=== PATIENT | male | born 1970 ===

== ENCOUNTER 2024-10-28 06:21 | Day surgery (SDC) | payer BC, SELFPAY | END 2024-10-28 11:46 | disposition home or self-care (01) | LOC: GI 06:21 | PROVIDERS: ATTENDING PHYSICIAN Surgery | DX: Z12.11 Encounter for screening for malignant neoplasm of colon (principal); D12.0 Benign neoplasm of cecum; D12.8 Benign neoplasm of rectum | CPT/HCPCS: 45385; 88305 ==

== ENCOUNTER → 2025-01-01 12:29 | Outpatient (REF) | payer BC, SELFPAY | LOC: PAVMRI 12:29 | PROVIDERS: ATTENDING PHYSICIAN Surgery; FAMILY PHYSICIAN Family Medicine | DX: K62.89 Other specified diseases of anus and rectum (principal) | CPT/HCPCS: 72197; A9575 ==

== ENCOUNTER → 2025-02-16 10:22 | Outpatient (REF) | payer BC, SELFPAY | LOC: RAD 10:22 | PROVIDERS: ATTENDING PHYSICIAN Surgery; FAMILY PHYSICIAN Family Medicine | DX: C20 Malignant neoplasm of rectum (principal) | CPT/HCPCS: 71260; 74177; Q9967 ==

== ENCOUNTER → 2025-03-10 14:33 | Outpatient (REF) | payer BC, SELFPAY ==
[2025-03-10 15:52] LABS: INR 0.93; PT 12.8 Sec (11.4-14.6)
[2025-03-10 15:53] LABS: APTT 26.1 Sec (23.4-35.0)
[2025-03-10 16:05] LABS: Hematocrit 40.1 % (39.0-52.0); Hemoglobin 13.2 g/dL (13.0-18.0); Mean Corp Hgb Conc. 32.9 g/dL (33.0-37.0); Mean Corpuscular Volume 93.0 fL (80.0-94.0); Nucleated Red Blood Cells % 0 % (-); Platelet Count 254 10^3/uL (130-400); Red Cell Dist. Width 12.9 % (11.5-14.5)
[2025-03-10 16:10] LABS: ALT (SGPT) 27 U/L (0-50); AST (SGOT) 27 U/L (17-59); Albumin 4.4 g/dl (3.5-5.0); Alkaline Phosphatase 62 U/L (38-126); Blood Urea Nitrogen 10 mg/dl (9-20); Calcium 9.8 mg/dl (8.4-10.2); Carbon Dioxide 27 mmol/L (22-30); Chloride 108 mmol/L (98-107); Glucose 96 mg/dl (70-99); Potassium 4.3 mmol/L (3.5-5.1); Sodium 141 mmol/L (135-145); Total Protein 6.9 g/dl (6.3-8.2); eGFR > 60.00
== END ==
LOC: REG 14:33
PROVIDERS: ATTENDING PHYSICIAN Surgery
DX: Z01.818 Encounter for other preprocedural examination (principal)
CPT/HCPCS: 36415; 80053; 85025; 85610; 85730

== ENCOUNTER 2025-03-25 06:05 | Day surgery (SDC) | payer BC, SELFPAY ==
[2025-03-25] VITALS (9 sets, daily range): BP systolic 121–134; BP diastolic 81–89; BMI 23.7
[2025-03-25] MEDS: TYLENOL 1000 MG PO (06:52)
[2025-03-25] MEDS: NORMOSOL-R/PLASMALYTE-A 1000 IV (06:52)
--- NOTE | 2025-03-25 10:00 | W.OR.REC1 ---
Rectal Surgery Post Op Note
Immediate Post Op
Primary Surgeon: Vincenzo Sparks MD
[employer] Manager: JENNY Fernandes and MAGI Sood
Pre-op Diagnosis: Mid rectal mass
Post-op Diagnosis: Same
Procedure Performed: Robotic transanal minimally invasive surgical resection
Anesthesia Type: GET
Specimen / Cultures: Rectal mass (2 x 1.5cm)
Estimated Blood Loss: 5cc
Complications: None
Operative Findings: 2 x 1.5 cm grossly benign-appearing lesion 6-7cm above the anal verge anteriorly
[place] injected
Partial thickness excision
Patient's daughter updated in the recovery room.
Cancer Report
ASA Score: I
Case Status: Elective
Operation: Local Excision
Modailty: Robotic
Location of tumor within rectum: Middle
Height of lower edge of tumor from anal verge: 7
Mobilization of splenic flexure: No
Level of ligation of inferior mesenteric artery: None
Level of ligation of inferior mesenteric vein: None
Type of Reconstruction: None
Anastomotic testing method(s): None
Creation of stoma: No
En bloc resection: No
Metastectomy: No
Completeness of tumor resection: R0
Interoperative Complications: No
Blood transfusion: No
Total Mesorectal Excision photographed: in pathology
Not TME, but lesion photographed in the operating room
== END 2025-03-25 11:38 | disposition home or self-care (01) ==
LOC: SDS 06:05
PROVIDERS: ATTENDING PHYSICIAN Surgery
DX: D12.8 Benign neoplasm of rectum (principal)
CPT/HCPCS: 45171; 88305; 93005; J1335